=== PATIENT | male | born 1990 | race Caucasian/White ===

== ENCOUNTER 2017-12-12 20:48 | Emergency (ER) | payer OTHER ==
[~2017-12-12] VITALS: Ht 172.7 cm; Wt 79.4 kg
[~2017-12-12 20:48] MED LIST: CLINDAMYCIN HC300 MG ORAL; IBUPROFEN600 MG ORAL
[2017-12-12] MEDS ORDERED: ZITHROMAX250 MG ORAL (21:30)
[2017-12-12] MEDS ORDERED: Norco 5mg/325mg tab ORAL ONE (21:30)
[2017-12-12] MEDS ORDERED: IBUPROFEN600 MG ORAL (21:30)
--- NOTE | 2017-12-12 21:32 | Emergency Room Report ---
History of Present Illness General Chief Complaint: Flu Like Symptoms Source: Patient Present Illness [facility] This a 27-year-old male with no past medical history. He presents with fever and sore throat. Onset for 2 days. No cough or congestion. No runny nose. Pain is 9 out of 10. Worse with swallowing. Able to hold his secretion. Has not take anything for this. Also with generalized body pain. Allergies: Coded Allergies: No Known Allergies (Unverified , 05/01/13) Patient History Past Medical History: see triage record, old chart reviewed Past Surgical History: none Pertinent Family History: none Social History: Denies: smoking Immunizations: other Reviewed Nursing Documentation: PMH: Agreed; PSxH: Agreed Nursing Documentation-PMH Past Medical History: No Stated History Review of Systems Constitutional: Reports: fever Eye: Denies: eye pain, blurred vision ENT: Reports: throat pain; Denies: ear pain, nose congestion, throat swelling Respiratory: Denies: cough, shortness of breath Cardiovascular: Denies: chest pain, palpitations Gastrointestinal: Denies: abdominal pain, diarrhea, nausea, vomiting Musculoskeletal: Denies: back pain, joint pain Skin: Denies: rash Neurological: Denies: headache, numbness Endocrine: Denies: increased thirst, increased urine Hematologic/Lymphatic: Denies: easy bruising All Other Systems: negative except mentioned in HPI Physical Exam Vital Signs Date Time Temp Pulse Resp B/P (MAP) Pulse Ox O2 Delivery O2 Flow Rate FiO2 12/12/17 21:04 101.3 125 18 133/84 98 Room Air 101.3 vitals with fever Sp02 EP Interpretation: reviewed, normal General Appearance: well appearing, no apparent distress, alert Head: normocephalic, atraumatic Eyes: bilateral eye PERRL, bilateral eye EOMI ENT: hearing grossly normal, uvula midline, tonsillar swelling, pharyngeal erythema, tonsillar exudate Neck: full range of motion, supple, no meningismus Respiratory: chest non-tender, lungs clear, normal breath sounds Cardiovascular #1: regular rate, rhythm, no murmur Gastrointestinal: normal bowel sounds, non tender, no mass, no organomegaly, no bruit, non-distended Musculoskeletal: back normal, gait/station normal, normal range of motion Psychiatric: mood/affect normal Skin: warm/dry Medical Decision Making Diagnostic Impression: Primary Impression: Pharyngitis, streptococcal ER Course Patient with exudative tonsillitis and fever. He has no other symptoms of a viral illness. No evidence of peritonsillar abscess, retropharyngeal abscess, or Msesi angina. We'll discharge home. Last Vital Signs Date Time Temp Pulse Resp B/P (MAP) Pulse Ox O2 Delivery O2 Flow Rate FiO2 12/12/17 21:10 125 18 Room Air 12/12/17 21:04 101.3 133/84 98 101.3 Status: improved Disposition: HOME, SELF-CARE Condition: Stable Scripts Azithromycin* (ZITHROMAX*) 250 Mg Tablet 250 MG ORAL DAILY, #6 TAB 0 Refills Take two tables once daily for 1 day, then one tablet once daily for 4 days. Prov: JUAN ELIZABETH M.D. 12/12/17 Ibuprofen* (MOTRIN*) 600 Mg Tablet 600 MG ORAL THREE TIMES A DAY, #30 TAB 0 Refills Prov: JUAN ELIZABETH M.D. 12/12/17 Additional Instructions: Increase fluid. Salt water gargle. Rest. Follow-up with your DrAnnie in 2-3 days for recheck. Return if symptom worsen. JUAN ELIZABETH M.D. Dec 12, 2017 21:32
[2017-12-12 21:51] VITALS: BP 133/84
== END 2017-12-12 21:55 | disposition home or self-care (01) ==
LOC: EMR 21:30
DX: J02.0 Streptococcal pharyngitis (principal); B95.5 Unspecified streptococcus as the cause of diseases classified elsewhere
CPT/HCPCS: 99284; J7512